=== PATIENT | male | born 1965 | race Two or more races ===

== ENCOUNTER 2020-06-08 11:58 | Inpatient (IN) | payer BC, OTHER ==
[2020-06-08] VITALS (12 sets, daily range): BP systolic 135–162; BP diastolic 80–118
[~2020-06-08] VITALS: Ht 172.7 cm; Wt 90.0 kg
[2020-06-08] MEDS ORDERED: nitroGLYCERIN-Tridil 50MG/D5W 250 ML IV PRN (12:00)
[2020-06-08] MEDS ORDERED: heparin 10,000 units/1 ML INJ IV ONE ×2 (12:05→12:10)
[2020-06-08] MEDS ORDERED: heparin 25,000 UNIT/250ml bag 250 ML IV SCH (12:05)
[2020-06-08 12:12] LABS: BASOPHILS # (AUTO) 0.1 X10'3 (0-0.2); BASOPHILS % (AUTO) 0.7 % (0-1); EOSINOPHILS # (AUTO) 0.1 X10'3 (0-0.9); HEMATOCRIT 46.8 % (42.0-52.0); HEMOGLOBIN 15.9 g/dl (14.0-17.9); LYMPHOCYTES # (AUTO) 1.9 X10'3 (1.1-4.8); LYMPHOCYTES % (AUTO) 26.8 % (21-51); MEAN CORPUSCULAR HEMOGLOBIN 30.1 PG (27.0-31.0); MEAN CORPUSCULAR HGB CONC 33.9 g/dL (33.0-36.5); MEAN CORPUSCULAR VOLUME 88.5 FL (78-98); MEAN PLATELET VOLUME 9.4 FL (7.4-10.4); MONOCYTES # (AUTO) 0.6 X10'3 (0-0.9); MONOCYTES % (AUTO) 8.6 % (2-12); NEUTROPHILS # (AUTO) 4.5 X10'3 (1.8-7.7); NEUTROPHILS % (AUTO) 62.9 % (42-75); PLATELET COUNT 225 X10'3 (140-440); RED BLOOD COUNT 5.29 X10'6 (4.70-6.10); RED CELL DISTRIBUTION WIDTH 13.1 % (11.5-14.5); WHITE BLOOD COUNT 7.1 X10'3 (4.5-11.0)
[2020-06-08] MEDS ORDERED: LIDOcaine 1% (10mg/ml)w/preservative injection 20ml MDV ONE (12:12)
[2020-06-08] MEDS ORDERED: heparin 1,000unit/ml 10ml vial 10 ML ONE (12:12)
[2020-06-08] MEDS ORDERED: iohexol 350 MG/1 ML 200ml bottle ONE (12:13)
[2020-06-08] MEDS ORDERED: heparin 1,000 UNITS/NS 500ml 500 ML ONE ×2 (12:13→12:14)
--- NOTE | 2020-06-08 12:15 | NUR ---
pt taken to labor representative .heparin sent with the pt .with all the belonging.
[2020-06-08] MEDS ORDERED: midazolam 2 mg/2 ml injection ONE (12:19)
[2020-06-08] MEDS ORDERED: fentaNYL/PF 50MCG/1 ML 2ML syringe ONE (12:19)
[2020-06-08 12:28] LABS: PARTIAL THROMBOPLASTIN TIME 28 SECONDS (22-32)
[2020-06-08] MEDS ORDERED: nitroGLYCERIN-Tridil 50MG/D5W 250 ML IV ONE (12:43)
[2020-06-08] MEDS ORDERED: ticagrelor 90mg tablet ONE (12:46)
[2020-06-08] MEDS ORDERED: HYDROcodone/acetaminophen 5mg/325mg tablet PO PRN (13:35)
[2020-06-08] MEDS ORDERED: proCHLORperazine 10 MG/2 ml inj IV PRN (13:35)
[2020-06-08] MEDS ORDERED: ondansetron/PF 4mg/2ml inj IV PRN (13:35)
[2020-06-08] MEDS ORDERED: nitroGLYCERIN 0.4mg SUBLingual tab SL PRN (13:35)
[2020-06-08] MEDS ORDERED: OXAZEpam 15mg capsule PO PRN (13:35)
[2020-06-08] MEDS: HYDROcodone/acetaminophen 10/325mg tab PO PRN ×3 (14:00→23:42)
[2020-06-08] MEDS ORDERED: hydrALAZINE 20mg/ml inj. IV PRN (14:25)
--- NOTE | 2020-06-08 14:36 | NUR ---
notified Dr. 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
--- NOTE | 2020-06-08 14:38 | NUR ---
patient has positive pedal pulses and is stable at this time. Hematoma present under femstop. original size outlined in marker
[2020-06-08] MEDS ORDERED: NAPR220T67 PO (15:04)
[2020-06-08] MEDS ORDERED: FAMO20TA47 PO (15:04)
--- NOTE | 2020-06-08 17:18 | NUR ---
page to respiratory [id number] Ralph. Patient uses CPAP at home at night and gets anxiety when he does not use it. Please set him up one to use tonmayra thanks. Sandhya [id number]
--- NOTE | 2020-06-08 17:50 | NUR ---
positive pedal pulses, hematoma has gotten softer and there has been no growth in size, patient able to sit up in about 10 minutes, all pressure from fem stop has been released will check again in 10 minutes to make sure no complications arise -femstop left in place in case pressure needs to be reapplied
--- NOTE | 2020-06-08 18:12 | NUR ---
Patient has positive pedal pulses. Femstop in place with no pressure. PAtient sitting up dressing CDI, groin hematoma getting softer no change in size. Patient alert and oriented. Problems reprioritized. Patient report given, questions answered & plan of care reviewed with Any PFEIFFER.
--- NOTE | 2020-06-08 18:15 | NUR ---
Patient in room PCU 3026. I have received report from KENTRELL Arthur and had the opportunity to ask questions and assume patient care.
[2020-06-08] MEDS: ticagrelor 90mg tablet PO SCH (19:55)
[2020-06-08] MEDS: metoprolol tartrate 25mg tablet PO SCH (19:55)
[2020-06-09 01:00] VITALS: BP 148/92
[2020-06-09 05:00] VITALS: BP 146/88
--- NOTE | 2020-06-09 06:26 | NUR ---
Problems reprioritized. Patient report given, questions answered & plan of care reviewed with Sandhya PFEIFFER.
[2020-06-09 06:36] LABS: BASOPHILS % (AUTO) 0.2 % (0-1); EOSINOPHILS # (AUTO) 0.1 X10'3 (0-0.9); EOSINOPHILS % (AUTO) 0.9 % (0-6); HEMATOCRIT 44.2 % (42.0-52.0); HEMOGLOBIN 15.1 g/dl (14.0-17.9); LYMPHOCYTES # (AUTO) 1.6 X10'3 (1.1-4.8); MEAN CORPUSCULAR HEMOGLOBIN 30.4 PG (27.0-31.0); MEAN CORPUSCULAR HGB CONC 34.1 g/dL (33.0-36.5); MEAN CORPUSCULAR VOLUME 89.1 FL (78-98); MONOCYTES # (AUTO) 0.8 X10'3 (0-0.9); MONOCYTES % (AUTO) 9.3 % (2-12); NEUTROPHILS # (AUTO) 5.9 X10'3 (1.8-7.7); NEUTROPHILS % (AUTO) 70.6 % (42-75); PLATELET COUNT 216 X10'3 (140-440); RED BLOOD COUNT 4.96 X10'6 (4.70-6.10); RED CELL DISTRIBUTION WIDTH 13.3 % (11.5-14.5); WHITE BLOOD COUNT 8.4 X10'3 (4.5-11.0)
[2020-06-09 07:00] VITALS: BP 129/82
[2020-06-09 07:07] LABS: CHOL/HDL RATIO 6.3 (0.00-4.99); CHOLESTEROL 278 MG/DL (0-200); HDL CHOLESTEROL 44 MG/DL (35-60); LDL CHOLESTEROL 169 MG/DL (50-100); TRIGLYCERIDES 322 MG/DL (20-135)
[2020-06-09] MEDS ORDERED: atorvastatin 20mg tablet PO SCH (08:00)
[2020-06-09] MEDS ORDERED: aspirin 81mg tablet.DR PO SCH (08:00)
[2020-06-09] MEDS: metoprolol tartrate 25mg tablet PO SCH ×2 (09:19→19:45)
[2020-06-09] MEDS: ticagrelor 90mg tablet PO SCH ×2 (09:20→19:46)
[2020-06-09] MEDS ORDERED: FLU VACC QS2020-21(6MOS UP)/PF 60 MCG/0.5 ML SYRINGE IMVAC ONE (10:00)
[2020-06-09] MEDS ORDERED: pneumococcal 23-VAL P-sac vacc 25 mcg/0.5ml vial IMVAC ONE (10:00)
[2020-06-09] MEDS ORDERED: ATOR20TA66 PO (17:46)
[2020-06-09] MEDS ORDERED: TICA90TA PO (17:46)
[2020-06-09] MEDS ORDERED: ASPI-1071 PO (17:46)
[2020-06-09] MEDS ORDERED: METO25TA6 PO (17:46)
[2020-06-09 18:00] VITALS: BP 130/80
--- NOTE | 2020-06-09 18:24 | NUR ---
Patient in room PCU 3026. I have received report from KENTRELL Arthur and had the opportunity to ask questions and assume patient care.
--- NOTE | 2020-06-09 18:35 | NUR ---
Problems reprioritized. Patient report given, questions answered & plan of care reviewed with Katrina PFEIFFER pt alert, oriented, and appropriate in no acte distress.
[2020-06-09 19:45] VITALS: BP_SYST 130
--- NOTE | 2020-06-09 19:54 | NUR ---
Discharge instructions provided to patient. Patient will call for follow up appointment with Dr. Brewer's office. Medications given prior to DC, both right and left IV's removed, telemetry DC'd, advised patient to removed groin dressing from hearth cath prior to showering, to refrain from soaking in bath/tub/pool for 7 days. Advised to contact Dr. Brewer's office in regards to request to be released to go back to work as limited phyical activity is recommended. VSS. Patient wheeled to front of hospital where friend is picking up in private vehicle. All belongings sent with patient.
== END 2020-06-09 19:58 | disposition home or self-care (01) | DRG 247 ==
LOC: ER 11:59 → PCU 3S 14:16
PROVIDERS: ADMIT Internal Medicine Interventional Cardiology; ATTEND Internal Medicine Interventional Cardiology
PROC: 4A023N7 Measurement of Cardiac Sampling and Pressure, Left Heart, Percutaneous Approach (ICD-10-PCS; principal; 2020-06-08)
PROC: 027035Z Dilation of Coronary Artery, One Artery with Two Drug-eluting Intraluminal Devices, Percutaneous Approach (ICD-10-PCS; 2020-06-08)
PROC: B2111ZZ Fluoroscopy of Multiple Coronary Arteries using Low Osmolar Contrast (ICD-10-PCS; 2020-06-08)
PROC: B2151ZZ Fluoroscopy of Left Heart using Low Osmolar Contrast (ICD-10-PCS; 2020-06-08)
PROC: 3E0234Z Introduction of Serum, Toxoid and Vaccine into Muscle, Percutaneous Approach (ICD-10-PCS; 2020-06-09)
PROC: 3E02340 Introduction of Influenza Vaccine into Muscle, Percutaneous Approach (ICD-10-PCS; 2020-06-09)
DX: I21.3 ST elevation (STEMI) myocardial infarction of unspecified site (principal); F17.210 Nicotine dependence, cigarettes, uncomplicated; G47.33 Obstructive sleep apnea (adult) (pediatric); R73.03 Prediabetes; M54.9 Dorsalgia, unspecified; Z82.3 Family history of stroke; Z82.49 Family history of ischemic heart disease and other diseases of the circulatory system; Z23 Encounter for immunization; Z79.899 Other long term (current) drug therapy; Z71.6 Tobacco abuse counseling
CPT/HCPCS: 93458; 99285; C9606; 36415; 80061; 83735; 83880; 84484; 85025; 85610; 85730; 87081; 90732; 93005; 99152; 99153; A6258; C1725; C1751; C1760; C1769; C1874; G0378; J1644; J2001; J2250; J3010; J3490; Q2039; Q9967